=== PATIENT | female | born 1950 | race Native Hawaiian/Other Pacific Islander ===

== ENCOUNTER 2016-12-19 07:22 | Outpatient (CLI) | payer OTHER | END 2016-12-19 20:01 | disposition home or self-care (01) | LOC: CT 07:22 | DX: R10.9 Unspecified abdominal pain (principal) | CPT/HCPCS: 36415; 82565; 84520; Q9963 ==

== ENCOUNTER 2017-03-08 14:50 | Outpatient (CLI) | payer OTHER | END 2017-03-08 19:22 | disposition home or self-care (01) | LOC: RESP 14:50 | DX: M54.5 Low back pain (principal); M54.16 Radiculopathy, lumbar region | CPT/HCPCS: 93005 ==

== ENCOUNTER 2017-05-20 10:29 | Outpatient (CLI) | payer OTHER | END 2017-05-20 11:30 | disposition home or self-care (01) | LOC: MAMMO 10:29 | DX: Z12.31 Encounter for screening mammogram for malignant neoplasm of breast (principal) | CPT/HCPCS: G0202-TC ==

== ENCOUNTER 2017-09-15 09:19 | Emergency (ER) | payer OTHER ==
[~2017-09-15] VITALS: Ht 160 cm; Wt 82.1 kg
[2017-09-15 09:20] VITALS: TEMP 98.2
[2017-09-15 12:06] VITALS: BP 148/78
== END 2017-09-15 12:06 | disposition home or self-care (01) ==
LOC: ED 09:19
DX: M54.32 Sciatica, left side (principal); M54.31 Sciatica, right side; M19.90 Unspecified osteoarthritis, unspecified site
CPT/HCPCS: 96372; 99283; J1885; J2360

== ENCOUNTER 2017-10-02 15:41 | Outpatient (CLI) | payer OTHER | END 2017-10-02 17:00 | disposition home or self-care (01) | LOC: RAD 15:41 | DX: Z01.818 Encounter for other preprocedural examination (principal) | CPT/HCPCS: 93005 ==

== ENCOUNTER 2017-10-24 09:37 | Outpatient (CLI) | payer OTHER | END 2017-10-24 19:08 | disposition home or self-care (01) | LOC: MRI 09:37 | DX: I65.21 Occlusion and stenosis of right carotid artery (principal); I66.01 Occlusion and stenosis of right middle cerebral artery; I66.02 Occlusion and stenosis of left middle cerebral artery; I66.21 Occlusion and stenosis of right posterior cerebral artery; I66.22 Occlusion and stenosis of left posterior cerebral artery ==

== ENCOUNTER 2017-11-20 09:58 | Outpatient (CLI) | payer OTHER | END 2017-11-20 21:34 | disposition home or self-care (01) | LOC: CT 09:58 | DX: R91.8 Other nonspecific abnormal finding of lung field (principal) ==

== ENCOUNTER 2018-05-13 10:39 | Outpatient (CLI) | payer OTHER | END 2018-05-13 21:53 | disposition home or self-care (01) | LOC: LABW 10:39 | DX: A69.22 Other neurologic disorders in Lyme disease (principal); E53.8 Deficiency of other specified B group vitamins; M32.8 Other forms of systemic lupus erythematosus; B15.9 Hepatitis A without hepatic coma; E55.9 Vitamin D deficiency, unspecified; B18.1 Chronic viral hepatitis B without delta-agent | CPT/HCPCS: 36415; 82306; 82607; 82747; 85651; 86039; 86618; 86704; 86706; 86708; 86803 ==

== ENCOUNTER 2018-05-23 09:41 | Outpatient (CLI) | payer OTHER | END 2018-05-23 19:09 | disposition home or self-care (01) | LOC: MAMMO 09:41 | DX: Z12.31 Encounter for screening mammogram for malignant neoplasm of breast (principal) ==

== ENCOUNTER 2018-09-09 10:29 | Outpatient (CLI) | payer OTHER ==
[2018-09-09 12:06] LABS: PLATELET COUNT 264 K/uL (152-353)
[2018-09-09 12:28] LABS: POTASSIUM 3.7 mmol/L (3.6-5.2)
== END 2018-09-09 21:22 | disposition home or self-care (01) ==
LOC: CT 10:29
PROVIDERS: Internal Medicine
DX: E78.2 Mixed hyperlipidemia (principal); M79.11 Myalgia of mastication muscle; M62.81 Muscle weakness (generalized); Z51.81 Encounter for therapeutic drug level monitoring; K76.0 Fatty (change of) liver, not elsewhere classified; R10.9 Unspecified abdominal pain; R10.2 Pelvic and perineal pain
CPT/HCPCS: 36415; 80048; 80061; 80076; 82542; 82550; 84443; 85027

== ENCOUNTER 2019-03-09 12:13 | Outpatient (CLI) | payer OTHER ==
[2019-03-09 12:47] LABS: PLATELET COUNT 275 K/uL (152-353)
[2019-03-09 12:50] LABS: POTASSIUM 3.7 mmol/L (3.6-5.2)
== END 2019-03-09 19:40 | disposition home or self-care (01) ==
LOC: LABW 12:13
PROVIDERS: Internal Medicine
DX: E78.2 Mixed hyperlipidemia (principal); M62.81 Muscle weakness (generalized); E03.0 Congenital hypothyroidism with diffuse goiter; E55.9 Vitamin D deficiency, unspecified; E53.8 Deficiency of other specified B group vitamins
CPT/HCPCS: 36415; 80048; 80061; 80076; 82306; 82550; 82607; 82747; 84439; 84443; 85027

== ENCOUNTER 2019-06-23 11:01 | Outpatient (CLI) | payer OTHER | END 2019-06-23 23:17 | disposition home or self-care (01) | LOC: LABW 11:01 | PROVIDERS: Internal Medicine | DX: E03.0 Congenital hypothyroidism with diffuse goiter (principal); E78.2 Mixed hyperlipidemia; M79.11 Myalgia of mastication muscle | CPT/HCPCS: 36415; 80061; 80076; 82550; 84439; 84443 ==

== ENCOUNTER 2019-08-26 12:55 | Outpatient (CLI) | payer OTHER | END 2019-08-26 23:01 | disposition home or self-care (01) | LOC: MAMMO 12:55 | DX: Z12.31 Encounter for screening mammogram for malignant neoplasm of breast (principal) ==

== ENCOUNTER 2020-07-07 08:49 | Outpatient (CLI) | payer OTHER | END 2020-07-07 21:04 | disposition home or self-care (01) | LOC: MRI 08:49 | DX: M25.512 Pain in left shoulder (principal); M19.012 Primary osteoarthritis, left shoulder; M75.102 Unspecified rotator cuff tear or rupture of left shoulder, not specified as traumatic ==

== ENCOUNTER 2020-12-23 12:25 | Outpatient (CLI) | payer OTHER ==
[2020-12-23 13:01] LABS: PLATELET COUNT 256 K/uL (152-353)
[2020-12-23 13:30] LABS: POTASSIUM 3.4 mmol/L (3.6-5.2)
== END 2020-12-23 19:36 | disposition home or self-care (01) ==
LOC: LABW 12:25
PROVIDERS: ATTEND Internal Medicine
DX: B18.8 Other chronic viral hepatitis (principal); E78.2 Mixed hyperlipidemia; M62.81 Muscle weakness (generalized); E03.0 Congenital hypothyroidism with diffuse goiter
CPT/HCPCS: 36415; 80048; 80061; 80076; 82550; 84439; 84443; 85027

== ENCOUNTER 2021-06-12 12:53 | Inpatient (IN) | payer OTHER ==
[~2021-06-12] VITALS: Ht 167.6 cm; Wt 81.9 kg
[2021-06-12 13:00] VITALS: BP 162/94; TEMP 97.8
[2021-06-12 13:54] LABS: PLATELET COUNT 261 K/uL (152-353)
[2021-06-12 13:57] LABS: POTASSIUM 4.2 mmol/L (3.6-5.2)
--- NOTE | 2021-06-12 18:35 | NUR ---
PATIENT ARRIVED TO FLOOR VIA WC
[2021-06-12 18:40] VITALS: BP 165/75; TEMP 97.5; Ht 167.6 cm; Wt 81.9 kg
[2021-06-12] MEDS ORDERED: PAROXETINE40 MG PO (19:42)
[2021-06-12] MEDS ORDERED: ESTR0.6211 PO (19:42)
[2021-06-12] MEDS ORDERED: AMLODIPINE BESYLATE PO (19:42)
[2021-06-12] MEDS ORDERED: SIMV10TA PO (19:43)
[2021-06-12] MEDS ORDERED: LEVO0.1224 PO (19:43)
[2021-06-12] MEDS ORDERED: IBU800 MG PO (19:44)
[2021-06-12] MEDS ORDERED: ASA LOW DOSE81 MG PO (19:45)
[2021-06-12] MEDS ORDERED: AMBIEN5 MG PO (19:45)
[2021-06-12] MEDS ORDERED: [UNRECOGNIZED DRUG - OTHER] PO (19:46)
[2021-06-12] MEDS ORDERED: MULTIVITAMI1 PO (19:46)
[2021-06-12] MEDS ORDERED: VITAMIN D PO (19:49)
[2021-06-12 20:00] VITALS: BP 155/70; TEMP 97.8
--- NOTE | 2021-06-12 20:50 | NUR ---
PT REQUESTED SOMETHING TO EAT. PEANUT BUTTER AND CRACKERS, AND SODA PROVIDED. PT STATED THAT SHE WENT "CRAZY" TODAY BUT IS ABLE TO ANSWER QUESTIONS APPROPRIATLY. PT STATED "I CAN'T READ THE WORDS ON THE TELEVISION" BUT IS ABLE TO TELL ME DATE TIME AND WHERE SHE IS.
[2021-06-13] VITALS: BP 135/64; BP 141/81; TEMP 98; TEMP 98.4
[2021-06-13 04:00] VITALS: BP 101/62; TEMP 98.2
--- NOTE | 2021-06-13 04:11 | NUR ---
PT AWAKE DENIES PAIN. PT WATCHING TELEVISION. PT STATES "I FEEL BETTER"
[2021-06-13 08:00] VITALS: BP 143/52; TEMP 98.4
--- NOTE | 2021-06-13 09:53 | NUR ---
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 DR. PLATA NOTIFIED. DR. PLATA ATTEMPTING TO REACH A NEUROLOGIST.
[2021-06-13 12:00] VITALS: BP 146/59; TEMP 98.6
[2021-06-13 16:00] VITALS: BP 144/68; TEMP 98.1
[2021-06-13 20:20] VITALS: BP 141/62; TEMP 98.7
[2021-06-14] VITALS: BP 141/81; TEMP 98.4
[2021-06-14 04:00] VITALS: BP 162/78; TEMP 97.6
--- NOTE | 2021-06-14 07:23 | NUR ---
PT RESTED WELL THIS SHIFT. [facility] CALLED AND THERE IS NO BED AVAILABLE YET. BED COORDINATER SAID THAT THEY WOULD CALL EVERY 4-6 HOURS TO KEEP US INFORMED. PT HAS NO COMPLAINTS THIS SHIFT.
--- NOTE | 2021-06-14 07:51 | NUR ---
PT SITTING UP IN CHAIR WASHING SELF OFF, PT HAD AN EPISODE OF INCONTINENCE AND STATES "I CAN NOT HOLD IT SOMETIMES," WILL PLACE BSC IN RM, PT STATES SHE IS NOT IN PAIN AT THIS TIME, NAD NOTED, NONLABORED BREATHING, PT AMBULATED BACK TO BED WITHOUT ASSISTANCE, NO FURTHER NEEDS AT THIS TIME, WILL CONTINUE TO MONITOR
[2021-06-14 08:00] VITALS: BP 154/71; TEMP 97.7
--- NOTE | 2021-06-14 09:34 | NUR ---
IV D/C. TIP INTACT. PT TOLERATED WELL.
[2021-06-14 12:00] VITALS: BP 150/63; TEMP 97.3
[2021-06-14 16:00] VITALS: BP 150/63; TEMP 97.3
[2021-06-14 20:00] VITALS: BP 138/74; TEMP 99
[2021-06-15 00:19] VITALS: BP 153/70; TEMP 98.9
--- NOTE | 2021-06-15 02:14 | NUR ---
Pt resting in bed with eyes closed. No c/o voiced. PRN ativan given earlier this shift per request for rest with good results. Pt has been able to voice needs/concerns without difficulty. Ambulates to bathroom without difficulty. No s/s of distress. Call light in easy reach.
[2021-06-15 04:00] VITALS: BP 146/61; TEMP 98.9
--- NOTE | 2021-06-15 05:47 | NUR ---
Pt resing quietly in bed on right side with eyes closed. No c/o voiced. No s/s of distress. Call light in easy reach.
[2021-06-15 08:00] VITALS: BP 151/70; TEMP 98.1
[2021-06-15 08:14] LABS: POTASSIUM 3.6 mmol/L (3.6-5.2)
--- NOTE | 2021-06-15 08:40 | NUR ---
RADIOLOGY TRANSPORT PT FOR MRA AT THIS TIME VIA WHEELCHAIR, NAD NOTED
--- NOTE | 2021-06-15 09:15 | NUR ---
PT RETURNED FROM RADIOLOGY VIA WHEELCHAIR TO RM 1106, NAD NOTED PT AMBULATED TO BED WIHTOUT ASSISTANCE
[2021-06-15 09:28] LABS: PLATELET COUNT 277 K/uL (152-353)
[2021-06-15 12:00] VITALS: BP 166/66; TEMP 98
[2021-06-15 16:00] VITALS: BP 149/74; TEMP 98.1
--- NOTE | 2021-06-15 16:50 | NUR ---
DC INSTRUCTIONS GIVEN AND EXPLAINED TO PT, PT VERBALIZED UNDERSTANDING, FOLLOWUP MADE WITH DR. ENGLISH ON 06/21/21 AT 1000, NEW MEDICATIONS EDUCATIONS GIVEN TO PT AND ORDERS SENT TO [facility], EXPLAINED TO PT WARNING SIGNS OF STROKE AND WHEN TO CALL ER, PT VERBALIZED UNDERSTADING
--- NOTE | 2021-06-15 16:50 | NUR ---
PT DC VIA WHEELCHAIR TO PERSONAL VEHICLE, NAD NOTED, BELONGINGS WITH PT
== END 2021-06-15 16:50 | disposition home or self-care (01) | DRG 65 ==
LOC: ED 12:53 → MED/SURG 16:00
PROVIDERS: Emergency Medicine Emergency Medical Services; Internal Medicine Endocrinology, Diabetes & Metabolism; ADMIT Internal Medicine; ATTEND Internal Medicine
DX: I63.432 Cerebral infarction due to embolism of left posterior cerebral artery (principal); N30.00 Acute cystitis without hematuria; I10 Essential (primary) hypertension; E03.8 Other specified hypothyroidism; F41.8 Other specified anxiety disorders; E55.9 Vitamin D deficiency, unspecified; B96.20 Unspecified Escherichia coli [E. coli] as the cause of diseases classified elsewhere
CPT/HCPCS: 36415; 80048; 80053; 81000; 81241; 83090; 85027; 85210; 85240; 85301; 85302; 85305; 85610; 85652; 86038; 86147; 87040; 87077; 87086; 87088; 87186; 87635; 96360; 96365; 96366; 96372; 99284; J0696; J1650; U0003

== ENCOUNTER 2021-09-08 14:25 | Outpatient (CLI) | payer OTHER ==
[~2021-09-08 14:25] MED LIST: AMBIEN5 MG PO; AMLODIPINE BESYLATE PO; ASA LOW DOSE81 MG PO; ESTR0.6211 PO; IBU800 MG PO; LEVO0.1224 PO; MULTIVITAMI1 PO; PAROXETINE40 MG PO; SIMV10TA PO; VITAMIN D PO; [UNRECOGNIZED DRUG - OTHER] PO
== END 2021-09-08 19:28 | disposition home or self-care (01) ==
LOC: MAMMO 14:25
PROVIDERS: ATTEND Internal Medicine
DX: Z13.820 Encounter for screening for osteoporosis (principal); Z12.31 Encounter for screening mammogram for malignant neoplasm of breast; N95.8 Other specified menopausal and perimenopausal disorders

== ENCOUNTER 2021-10-26 10:11 | Emergency (ER) | payer OTHER ==
[~2021-10-26] VITALS: Ht 167.6 cm; Wt 81.6 kg
[2021-10-26 10:24] VITALS: TEMP 97.6
[2021-10-26 11:14] LABS: PLATELET COUNT 234 K/uL (152-353)
[2021-10-26 11:25] LABS: POTASSIUM 3.7 mmol/L (3.6-5.2)
[2021-10-26 11:58] VITALS: BP 148/56
== END 2021-10-26 12:00 | disposition home or self-care (01) ==
LOC: ED 10:11
PROVIDERS: Hospitalist
DX: R42 Dizziness and giddiness (principal)
CPT/HCPCS: 80048; 85027; 93005; 99283

== ENCOUNTER 2021-11-13 10:06 | Outpatient (CLI) | payer OTHER | END 2021-11-13 18:54 | disposition home or self-care (01) | LOC: US 10:06 | PROVIDERS: ATTEND Internal Medicine | DX: Z09 Encounter for follow-up examination after completed treatment for conditions other than malignant neoplasm (principal); Z86.73 Personal history of transient ischemic attack (TIA), and cerebral infarction without residual deficits | CPT/HCPCS: A9576 ==

== ENCOUNTER 2022-02-15 17:44 | Outpatient (CLI) | payer OTHER | END 2022-02-15 20:21 | disposition home or self-care (01) | LOC: LAB 17:44 | PROVIDERS: ATTEND Internal Medicine | DX: N39.0 Urinary tract infection, site not specified (principal) | CPT/HCPCS: 87077; 87086; 87088; 87186 ==

== ENCOUNTER 2022-11-23 10:54 | Outpatient (CLI) | payer OTHER ==
[2022-11-23 11:42] LABS: PLATELET COUNT 280 K/uL (152-353)
[2022-11-23 12:05] LABS: POTASSIUM 3.5 mmol/L (3.6-5.2)
== END 2022-11-23 19:53 | disposition home or self-care (01) ==
LOC: LABW 10:54
PROVIDERS: ATTEND Internal Medicine
DX: I10 Essential (primary) hypertension (principal); E03.8 Other specified hypothyroidism; G47.00 Insomnia, unspecified; R82.998 Other abnormal findings in urine
CPT/HCPCS: 36415; 80053; 80061; 81000; 84439; 84443; 85027; 87077; 87086; 87088; 87186

== ENCOUNTER 2023-03-04 13:13 | Outpatient (CLI) | payer OTHER | END 2023-03-04 21:23 | disposition home or self-care (01) | LOC: MRI 13:13 | PROVIDERS: ATTEND Internal Medicine | DX: G45.8 Other transient cerebral ischemic attacks and related syndromes (principal) ==

== ENCOUNTER 2023-05-06 08:36 | Outpatient (CLI) | payer OTHER | END 2023-05-06 18:53 | disposition home or self-care (01) | LOC: RESP 08:36 | PROVIDERS: ATTEND Specialist | DX: I10 Essential (primary) hypertension (principal); R00.2 Palpitations; R06.02 Shortness of breath ==

== ENCOUNTER 2023-05-07 09:31 | Outpatient (CLI) | payer OTHER ==
[~2023-05-07] VITALS: Ht 160 cm; Wt 80.8 kg
== END 2023-05-07 19:07 | disposition home or self-care (01) ==
LOC: NM 09:31
PROVIDERS: ATTEND Specialist
DX: R53.83 Other fatigue (principal); I10 Essential (primary) hypertension; I63.9 Cerebral infarction, unspecified
CPT/HCPCS: A9500; J2785

== ENCOUNTER 2023-06-04 17:50 | Emergency (ER) | payer OTHER ==
[~2023-06-04] VITALS: Ht 160 cm; Wt 81.6 kg
[2023-06-04 17:50] VITALS: BP 191/82; TEMP 98.6
[2023-06-04 18:10] LABS: PLATELET COUNT 286 K/uL (152-353)
[2023-06-04 18:18] LABS: POTASSIUM 3.8 mmol/L (3.6-5.2)
[2023-06-19] MEDS ORDERED: ASPI81TA4 PO (12:00)
[2023-06-19] MEDS ORDERED: LEVO0.0529 PO (12:00)
[2023-06-19] MEDS ORDERED: NORVASC 5MG TAB PO (12:00)
[2023-06-19] MEDS ORDERED: DIVALPROEX250 MG PO (12:00)
[2023-06-19] MEDS ORDERED: MAGNSUS68 PO (12:01)
[2023-06-19] MEDS ORDERED: SIMV10TA PO (12:01)
== END 2023-06-04 22:20 | disposition other institution (70) ==
LOC: ED 17:50
PROVIDERS: Family Medicine
DX: F29 Unspecified psychosis not due to a substance or known physiological condition (principal); N39.0 Urinary tract infection, site not specified
CPT/HCPCS: 36415; 80053; 81000; 85027; 87077; 87086; 87088; 87186; 87635; 93005; 96365; 96375; 99284; J0696; J1200; J1630; J2060; U0003

== ENCOUNTER 2023-06-25 08:42 | Outpatient (CLI) | payer OTHER ==
[~2023-06-25 08:42] MED LIST changes: +ASPI81TA4 PO; +DIVALPROEX250 MG PO; +LEVO0.0529 PO; +MAGNSUS68 PO; +NORVASC 5MG TAB PO
[2023-06-25 09:16] LABS: PLATELET COUNT 330 K/uL (152-353)
== END 2023-06-25 20:22 | disposition home or self-care (01) ==
LOC: LABW 08:42
PROVIDERS: ATTEND Internal Medicine
DX: E03.8 Other specified hypothyroidism (principal); I10 Essential (primary) hypertension; R82.998 Other abnormal findings in urine
CPT/HCPCS: 36415; 80053; 80061; 80164; 81000; 84439; 84443; 85027; 87077; 87086; 87088; 87186